=== PATIENT | male | born 1945 | race Two or more races ===

== ENCOUNTER 2019-11-24 18:18 | Inpatient (IN) | payer OTHER ==
[~2019-11-24] VITALS: Ht 182.9 cm; Wt 109.0 kg
--- NOTE | 2019-11-24 18:38 | NUR ---
PT BAY GOMEZ FROM [facility]. STATES YESTERDAY HE WAS WALKING AND HEARD HIS HIP POP AND THEN HE FELL TO THE GROUND. PT CRAWLED TO CHAIR AND SPENT THE NIGHT IN CHAIR. TODAY COULDN'T TOLERATE PAIN AND CALLED 911. DENIES LOC/HEAD INJURY. 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 MONITORS APPLIED. PT RESTING ON GURNEY. NADN. PT REQUESTING FOOD. PER ERP DR. LOCKWOOD WILL LOOK AT PT'S IMAGING RESULTS. PT MAY/MAY NOT HAVE FOOD DEPENDING ON IMAGING. DIET TRAY ORDERED.
--- NOTE | 2019-11-24 18:54 | NUR ---
REPORT GIVEN TO BRANDON GARCIA RN.
--- NOTE | 2019-11-24 19:04 | NUR ---
REPORT OF PT FROM CHILANGO BELCHER, AND ASSUMING CARE OF PT AT THIS TIME.
[2019-11-24] MEDS ORDERED: ONDANSETRON 2MG/ML, 2ML IVPush PRN ×2 (20:00→21:00)
[2019-11-24] MEDS ORDERED: MORPHINE SULFATE 4 MG/ML, 1ML IVPush PRN (20:00)
[2019-11-24] MEDS ORDERED: TAMS-11 PO (20:16)
[2019-11-24] MEDS ORDERED: ONDANSETRON 2MG/ML, 2ML ONE (20:22)
[2019-11-24] MEDS ORDERED: MORPHINE SULFATE 4 MG/ML, 1ML ONE (20:22)
--- NOTE | 2019-11-24 20:24 | NUR ---
PT MEDICATED PER [facility] FOR PAIN . DR KIDD AT FOR PT HISTORY AND ASSESSMENT
[2019-11-24] MEDS ORDERED: ACETAMINOPHEN 325 MG TABLET PO PRN (21:00)
[2019-11-24] MEDS ORDERED: hydrALAzine 20 MG/ML, 1ML IVPush PRN (21:00)
[2019-11-24] MEDS: PLEASE ENTER ALLERGIES MC SCH ×2 (21:30→21:49)
[2019-11-24] MEDS: TRAZODONE 50MG TABLET PO PRN (21:49)
[2019-11-24] MEDS: LACTATED RINGERS 1,000 ML IV SCH (21:49)
[2019-11-24 23:02] LABS: ANION GAP 8 mmol/L (5-15); CALCIUM 8.6 mg/dL (8.5-10.1); CHLORIDE 106 mmol/L (98-107)
[2019-11-24 23:03] LABS: BASOPHILS # (AUTO) 0.03 x10^3/uL (0-0.1); BASOPHILS % (AUTO) 0 % (0-1); EOSINOPHILS # (AUTO) 0.29 x10^3/uL (0-0.4); EOSINOPHILS % (AUTO) 3 % (1-7); LYMPHOCYTES # (AUTO) 2.07 x10^3/uL (1-3.4); LYMPHOCYTES % (AUTO) 23 % (22-44); MD NO; MEAN CORPUSCULAR HEMOGLOBIN 30.5 pg (27.5-34.5); MEAN CORPUSCULAR HGB CONC 33.1 g/dL (33.2-36.2); MEAN PLATELET VOLUME 9.1 fL (7.4-10.4); MONOCYTES # (AUTO) 0.65 x10^3/uL (0.2-0.8); MONOCYTES % (AUTO) 7 % (2-9); NEUTROPHILS # (AUTO) 6.07 x10^3/uL (1.8-6.8); NEUTROPHILS % (AUTO) 67 % (42-75); PLATELET COUNT 312 x10^3/uL (130-400); RED BLOOD COUNT 4.43 x10^6/uL (4.38-5.82); RED CELL DISTRIBUTION WIDTH 13.6 % (9.4-14.8)
[2019-11-24 23:07] LABS: CREATINE KINASE, TOTAL 786 U/L (39-308); CREATININE 1.14 mg/dL (0.7-1.3)
[2019-11-25] MEDS: HYDROcodone/APAP 5/325 TABLET PO PRN ×4 (00:28→19:40)
[2019-11-25 01:05] VITALS: BP 103/54
[2019-11-25 07:43] VITALS: BP 110/60
[2019-11-25] MEDS: LACTATED RINGERS 1,000 ML IV SCH ×2 (07:48→19:40)
[2019-11-25] MEDS: morphine SULFATE 10 MG/ML, 1ML IVPush PRN ×3 (09:04→22:27)
[2019-11-25] MEDS: SENNA/DOCUSATE TABLET PO SCH (09:05)
[2019-11-25] MEDS: TAMSULOSIN 0.4 MG CAP.ER.24H PO SCH (09:05)
[2019-11-25] MEDS: PLEASE ENTER ALLERGIES MC SCH (13:18)
[2019-11-25 13:36] VITALS: BP 115/75
[2019-11-25] MEDS ORDERED: BACITRACIN 50,000 UNIT ONE (14:15)
[2019-11-25] MEDS ORDERED: BUPIVACAINE/EPI 0.5% 1:200K ONE (14:15)
[2019-11-25] MEDS ORDERED: PROPOFOL 10 MG/ML, 20ML ONE (15:06)
[2019-11-25] MEDS ORDERED: FENTANYL PF 100 MCG/2ML ONE ×2 (15:06→17:24)
[2019-11-25] MEDS ORDERED: CEFAZOLIN 1,000 MG ONE (15:06)
[2019-11-25] MEDS ORDERED: MIDAZOLAM 1 MG/ML, 2ML ONE (15:06)
[2019-11-25] MEDS ORDERED: DEXAMETHASONE 4 MG/ML, 1ML ONE (15:06)
[2019-11-25] MEDS ORDERED: ONDANSETRON 2MG/ML, 2ML ONE (15:06)
[2019-11-25] MEDS ORDERED: HYDROmorphone 1 MG/ML, 1ML INJ IVPush PRN (15:30)
[2019-11-25] MEDS ORDERED: FENTANYL PF 100 MCG/2ML IV PRN (15:30)
[2019-11-25] MEDS ORDERED: OXYcodone 5 MG/5 ML ORAL.SOL UDC PO PRN (15:30)
[2019-11-25] MEDS ORDERED: HYDROcodone/APAP 7.5-325MG/15ML UDC PO PRN (15:30)
[2019-11-25] MEDS ORDERED: MEPERIDINE/PF 25MG/0.5ML IVPush PRN (15:30)
[2019-11-25] MEDS ORDERED: PROMETHAZINE 25 MG/ML, 1ML IVPush PRN (15:30)
[2019-11-25] MEDS ORDERED: SUGAMMADEX 200 MG/2 ML IVPush ONE (15:45)
[2019-11-25] MEDS ORDERED: EPHEDRINE 50 MG/ML, 1ML ONE (15:45)
[2019-11-25 19:24] VITALS: BP 99/63
[2019-11-26] MEDS ORDERED: CEFAZOLIN 1,000 MG IM SCH
[2019-11-26] MEDS: HYDROcodone/APAP 5/325 TABLET PO PRN ×2 (00:05→06:32)
[2019-11-26] MEDS: CEFAZOLIN PMX 1GM/50ML 50 ML IVPB SCH ×2 (00:05→08:14)
[2019-11-26 00:55] VITALS: BP 111/65
[2019-11-26] MEDS: TRAZODONE 50MG TABLET PO PRN ×3 (01:36→21:52)
[2019-11-26] MEDS: morphine SULFATE 10 MG/ML, 1ML IVPush PRN ×3 (03:16→21:53)
[2019-11-26 04:08] VITALS: BP 116/72
[2019-11-26] MEDS: LACTATED RINGERS 1,000 ML IV SCH (04:36)
[2019-11-26 08:00] VITALS: BP 117/69
[2019-11-26 08:03] LABS: MEAN CORPUSCULAR HEMOGLOBIN 29.8 pg (27.5-34.5); MEAN CORPUSCULAR HGB CONC 32.2 g/dL (33.2-36.2); MEAN PLATELET VOLUME 9.1 fL (7.4-10.4); PLATELET COUNT 334 x10^3/uL (130-400); RED BLOOD COUNT 4.26 x10^6/uL (4.38-5.82); RED CELL DISTRIBUTION WIDTH 13.7 % (9.4-14.8)
[2019-11-26] MEDS: SENNA/DOCUSATE TABLET PO SCH (08:13)
[2019-11-26] MEDS: TAMSULOSIN 0.4 MG CAP.ER.24H PO SCH (08:14)
[2019-11-26 09:04] LABS: MD YES
[2019-11-26 09:06] LABS: BAND#(MANUAL) 0.19 x10^3/uL; BANDS%(MANUAL) 1 % (0-7); MONOS#(MANUAL) 0.38 x10^3/uL (0.3-2.7); MONOS% (MANUAL) 2 % (2-9)
[2019-11-26 09:07] LABS: LYMPH#(MANUAL) 0.57 x10^3/uL (1-3.4); LYMPHS% (MANUAL) 3 % (22-44); SEGS% (MANUAL) 94 % (42-75)
[2019-11-26 09:08] LABS: <PLATELET ESTIMATE> ADEQUATE; <PLT MORPHOLOGY> NORMAL PLT MORPH; <RBC MORPHOLOGY> NORMAL
[2019-11-26] MEDS: ACETAMINOPHEN 325 MG TABLET PO SCH ×3 (11:56→21:52)
[2019-11-26] MEDS: GABAPENTIN 100 MG CAPSULE PO SCH ×3 (11:56→21:52)
[2019-11-26 13:40] VITALS: BP 120/76
[2019-11-26 21:58] VITALS: BP 158/76
[2019-11-27 03:57] VITALS: BP 137/79
[2019-11-27] MEDS: morphine SULFATE 10 MG/ML, 1ML IVPush PRN ×3 (04:00→08:13)
[2019-11-27 08:07] LABS: MEAN CORPUSCULAR HEMOGLOBIN 29.8 pg (27.5-34.5); MEAN CORPUSCULAR HGB CONC 32.4 g/dL (33.2-36.2); MEAN PLATELET VOLUME 8.4 fL (7.4-10.4); PLATELET COUNT 351 x10^3/uL (130-400); RED CELL DISTRIBUTION WIDTH 13.5 % (9.4-14.8)
[2019-11-27] MEDS: SENNA/DOCUSATE TABLET PO SCH (08:12)
[2019-11-27] MEDS: GABAPENTIN 100 MG CAPSULE PO SCH ×2 (08:12→16:13)
[2019-11-27] MEDS: ACETAMINOPHEN 325 MG TABLET PO SCH ×2 (08:12→16:13)
[2019-11-27] MEDS: TAMSULOSIN 0.4 MG CAP.ER.24H PO SCH (08:12)
[2019-11-27 08:16] LABS: ANION GAP 8 mmol/L (5-15); CALCIUM 8.8 mg/dL (8.5-10.1); CHLORIDE 107 mmol/L (98-107); CREATININE 1.04 mg/dL (0.7-1.3)
[2019-11-27 08:31] LABS: BASOPHILS # (AUTO) 0.07 x10^3/uL (0-0.1); BASOPHILS % (AUTO) 0 % (0-1); EOSINOPHILS # (AUTO) 0.03 x10^3/uL (0-0.4); EOSINOPHILS % (AUTO) 0 % (1-7); LYMPHOCYTES # (AUTO) 1.32 x10^3/uL (1-3.4); LYMPHOCYTES % (AUTO) 8 % (22-44); MD SCAN; MONOCYTES # (AUTO) 1.25 x10^3/uL (0.2-0.8); MONOCYTES % (AUTO) 7 % (2-9); NEUTROPHILS # (AUTO) 14.15 x10^3/uL (1.8-6.8); NEUTROPHILS % (AUTO) 84 % (42-75)
[2019-11-27 09:26] VITALS: BP 114/61
[2019-11-27] MEDS: CYCLOBENZAPRINE 10 MG TABLET PO PRN ×2 (09:49→16:13)
[2019-11-27] MEDS: OXYcodone IR 5MG TABLET PO PRN ×2 (10:49→16:13)
[2019-11-27 12:15] LABS: MICROSCOPIC NOT IND
[2019-11-27] MEDS ORDERED: CEFTRIAXONE PMX 1GM/50ML 50 ML IV SCH (13:00)
[2019-11-27] MEDS ORDERED: OXYC5TAB3 PO ×2 (13:26→15:00)
[2019-11-27] MEDS ORDERED: SENN-193 PO (13:26)
[2019-11-27] MEDS ORDERED: CEFD300C37 PO (13:26)
[2019-11-27] MEDS ORDERED: ASPI81TA45 PO (13:26)
[2019-11-27] MEDS ORDERED: GABA-826 PO (13:26)
[2019-11-27 14:01] VITALS: BP 121/77
[2019-11-27] MEDS ORDERED: ASPIRIN 81 MG TABLET EC PO SCH (21:00)
== END 2019-11-27 16:35 | DRG 493 ==
LOC: ED 19:29 → EDIP 19:35 → ED 19:53 → 4NE 20:56
PROVIDERS: ADMIT Family Medicine; ATTEND Hospitalist
PROC: 0QSK04Z Reposition Left Fibula with Internal Fixation Device, Open Approach (ICD-10-PCS; principal; 2019-11-26)
PROC: 0MQR0ZZ Repair Left Ankle Bursa and Ligament, Open Approach (ICD-10-PCS; 2019-11-26)
DX: S82.842A Displaced bimalleolar fracture of left lower leg, initial encounter for closed fracture (principal); M62.82 Rhabdomyolysis; D64.9 Anemia, unspecified; D72.829 Elevated white blood cell count, unspecified; G89.29 Other chronic pain; H81.09 Meniere's disease, unspecified ear; S50.311A Abrasion of right elbow, initial encounter; S80.211A Abrasion, right knee, initial encounter; S82.432A Displaced oblique fracture of shaft of left fibula, initial encounter for closed fracture; N40.1 Benign prostatic hyperplasia with lower urinary tract symptoms; R33.8 Other retention of urine; M54.5 Low back pain; R74.8 Abnormal levels of other serum enzymes; W18.30XA Fall on same level, unspecified, initial encounter; Y93.01 Activity, walking, marching and hiking; Z20.828 Contact with and (suspected) exposure to other viral communicable diseases; Z91.030 Bee allergy status; Z80.9 Family history of malignant neoplasm, unspecified; Z87.891 Personal history of nicotine dependence; Y92.009 Unspecified place in unspecified non-institutional (private) residence as the place of occurrence of the external cause; Y99.0 Civilian activity done for income or pay
CPT/HCPCS: 36415; 71045; 76000; 80048; 81003; 82550; 84145; 85025; 87635; 96374; 96375; 99285; C1713; G0378; J0690; J0696; J1100; J2250; J2405; J2704; J3010; J2270; J7120